=== PATIENT | male | born 1940 | race Caucasian/White ===

== ENCOUNTER 2018-08-28 13:46 | Inpatient (IN) ==
--- NOTE | 2018-08-28 14:26 | Diag Imaging Result Doc PS360 ---
CT HEAD W/O CONTRAST - 08/28/2018 INDICATION: stroke like sx COMPARISON: None FINDINGS: There is ill-defined cortical based hypodensity at the superior left frontal lobe focally. There is moderate cerebral atrophy. There is moderate patchy periventricular white matter lucency compatible with chronic microvascular disease. No intracranial mass or hemorrhage. The skull is intact. The sinuses are clear. 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 This report was discussed with Dr. Ames on 08/28/2018 at 2:20 PM and was readback. This exam was performed using automated exposure control, adjustment of mA or kV according to patient size, and/or use of iterative reconstruction technique Electronically signed by Nino Downey 08/28/2018 2:24 PM
--- NOTE | 2018-08-28 14:56 | EKG Report ---
Test Performed on : 08/28/2018 1:57:59 PM Test Reason : Stroke like symptoms Blood Pressure : / mmHG Vent. Rate : 060 BPM Atrial Rate : 060 BPM P-R Int : 162 ms QRS Dur : 128 ms QT Int : 412 ms P-R-T Axes : -01 -51 062 degrees QTc Int : 412 ms Normal sinus rhythm. Left axis deviation Left ventricular hypertrophy with QRS widening and repolarization abnormality Abnormal ECG When compared with ECG of 01-MAR-2017 07:37, No significant change was found Unconfirmed Result
--- NOTE | 2018-08-28 15:09 | Diag Imaging Result Doc PS360 ---
EXAM: CHEST-PORTABLE HISTORY: stroke like symptoms TECHNIQUE: Chest single view COMPARISON: None. FINDINGS: Poor inspiratory effort. The heart is enlarged. Mild central vascular prominence. No consolidation. Questionable tiny left pleural effusion. IMPRESSION: Cardiomegaly with borderline mild vascular distention Electronically signed by Bob Bush 08/28/2018 3:07 PM
[2018-08-28 15:13] LABS: INR 0.89; PROTIME 12.7 Seconds (11.0-16.0)
[2018-08-28 15:19] LABS: BASO# 0.01 X1000 (0.0-0.2); BASO% 0.1 % (0.0-0.8); EOS# 0.25 X1000 (0.0-0.7); EOS% 3.3 % (0.0-10.0); HEMATOCRIT 39.7 % (42.0-52.0); HEMOGLOBIN 12.9 g/dL (14.0-18.0); IMM GRAN# 0.02 X1000 (0.0-0.04); IMM GRAN% 0.3 % (0.0-0.5); LYMPH# 2.35 X1000 (1.2-3.4); MCH 28.2 PG (27-31); MCHC 32.5 g/dL (33-37); MCV 86.9 FL (81-99); MONO# 0.76 X1000 (0.11-0.59); MPV 10.9 FL (7.4-10.4); NEUT% 55.3 % (42.2-75.2); PLT 208 X1000 (130-400); RBC 4.57 XMIL (4.7-6.1); RDW 16.4 % (11.5-14.5); WBC 7.59 X1000 (4.8-10.8)
[2018-08-28 15:30] LABS: URINE SOURCE CATH
[2018-08-28 15:32] LABS: BILIRUBIN URINE NEGATIVE (NEGATIVE); BLOOD URINE NEGATIVE (NEGATIVE); COLOR YELLOW; GLUCOSE URINE 300 mg/dL (NEGATIVE); KETONE URINE NEGATIVE (NEGATIVE); LEUKOCYTES URINE NEGATIVE (NEGATIVE); NITRITE URINE NEGATIVE (NEGATIVE); PH URINE 7.5; PROTEIN URINE NEGATIVE (NEGATIVE); SP GRAVITY URINE 1.008; TURBIDITY URINE CLEAR (CLEAR); UR EPITHELIAL CELLS <10 /HPF (<10); URINE BACTERIA NEGATIVE /HPF; URINE RBC <10 /HPF (<10); URINE WBC <10 /HPF (<10); UROBILINOGEN URINE NORMAL (NORMAL)
[2018-08-28 15:39] LABS: AGAP 13; ALB/GLOB RATIO 1.3; ALBUMIN 4.3 g/dL (3.5-5.0); ALKALINE PHOSPHATASE 88 U/L (32-122); BUN 11 mg/dL (8-22); CALCIUM 9.5 mg/dL (8.8-10.2); CHLORIDE 102 mmol/L (98-107); COSMO 285; ESTIMATED GFR > 60; GLUCOSE 170 mg/dL (70-104); GOT 27 U/L (10-34); GPT 27 U/L (10-44); POTASSIUM 4.3 mmol/L (3.5-5.1); SODIUM 141 mmol/L (136-145); TCO2 26 mmol/L (25-35); TOTAL BILIRUBIN 0.46 mg/dL (0.20-1.00); TOTAL PROTEIN 7.5 g/dL (6.3-8.3)
--- NOTE | 2018-08-28 16:03 | PROVIDER DOCUMENTATION ---
This chart was entered by Lurdes Carmen Scribe, acting as scribe for Jonah Ames MD. HPI-Neurological Disorder - General Chief Complaint: Stroke-Like Symptoms Stated Complaint: POSS STROKE SYMPTOMS Time Seen by Provider: 08/28/18 14:05 Source: patient Allergies/Adverse Reactions: Patient Allergies Allergy/AdvReac Type Severity Reaction Status Date / Time No Known Allergies Allergy Verified 08/28/18 14:45 Home Medications: Home Medication List Medication Instructions Recorded Confirmed Last Taken Type Aspirin 81 mg PO DAILY 09/18/16 03/07/17 08/28/18 History Metformin HCl 500 mg PO BID 09/18/16 03/07/17 08/28/18 History Metoprolol Succinate [Toprol Xl] 50 mg PO DAILY 09/18/16 03/07/17 08/28/18 History Tramadol HCl/Acetaminophen 1 each PO TID 09/18/16 03/07/17 08/27/18 History [Ultracet Tablet] ATORVAstatin [Lipitor] 20 mg PO DAILY@1700 tablet 03/08/17 08/27/18 Rx Hydrocodone/Acetaminophen [[place] 1 - 2 each PO Q4-6H PRN PRN 14 03/08/17 Unknown Rx 10-325 Tablet] Days #40 tablet Biotin 1 dose PO DAILY 08/28/18 08/28/18 08/28/18 History Cholecalciferol (Vit D3) [Vitamin 1 dose PO DAILY 08/28/18 08/28/18 08/28/18 History D] Cyanocobalamin (Vitamin B-12) 1 dose PO DAILY 08/28/18 08/28/18 08/28/18 History [Vitamin B12] Donepezil HCl 1 tab PO DAILY 08/28/18 08/28/18 08/27/18 History Multivitamin [Multi-Day Vitamins] 08/28/18 08/28/18 History Omeprazole 1 tab PO DAILY 08/28/18 08/28/18 08/28/18 History Vitamin E 1 dose PO DAILY 08/28/18 08/28/18 08/28/18 History - History of Present Illness-Neuro Nature of Presenting Problem: Patient is a 78 year old male who presents with left temporal headache and difficulty completing sentences since 0930 this morning. Denies vision changes. Headache Location: reports: temporal (left) Severity: reports: mild Onset/Duration: reports: this morning (929) Timing: reports: still present Context: reports: impaired speech (difficulty completing sentences) Character of Deficits: reports: impaired speech (difficulty completing sentences) Associated Symptoms: reports: denies symptoms Similar Symptoms Previously?: No Recently seen or treated by another doctor?: No Review of Systems - Adult - REVIEW OF SYSTEMS - ADULT Constitutional: reports: no symptoms reported. denies: chills, fever, fatique Eyes: reports: no symptoms reported. denies: decreased vision, blurred vision, double vision Ears, Nose, Mouth & Throat: reports: no symptoms reported Cardiovascular: reports: no symptoms reported Respiratory: reports: no symptoms reported Gastrointestinal: reports: no symptoms reported Genitourinary: reports: no symptoms reported Musculoskeletal: reports: no symptoms reported Integumentary: reports: no symptoms reported Neurological: reports: see HPI, headache/migraines ([place]), other (difficulty completing sentences). denies: dizziness/vertigo, numbness, seizure, syncope Psychiatric: reports: no symptoms reported Endocrine: reports: no symptoms reported Hematologic/Lymphatic: reports: no symptoms reported Allergic/Immunologic: reports: no symptoms reported All Other Systems: Reviewed and Negative Past History - Adult - PAST MEDICAL HISTORY-ADULT Review of Records: reports: Old Records Reviewed, Nursing Assessment Review, Medications Reviewed, Social history reviewed & non-contributory. Major Childhood Illnesses: reports: denies history Cardiovascular: reports: denies history Respiratory: reports: sleep apnea Gastrointestinal: reports: other (hiatal hernia) Obstetrical/Gynecological: reports: denies history Genitourinary: reports: denies history Musculoskeletal: reports: denies history Neurological: reports: CVA, TIA Endocrine/Immune: reports: Diabetes Other Conditions: reports: denies history - PRIOR SURGERIES/PROCEDURES Surgical/Procedure History: reports: hernia repair, orthopedic (extremity), back/neck - IMMUNIZATION STATUS Childhood Immunizations: See Nurse Assessment Flu Vaccine: See Nurse Assessment - FAMILY HISTORY Family History: reviewed, not pertinent - SOCIAL HISTORY Smoking: cigarettes (former) Substance Use: denies Physical Exam- Neurological - Physical Exam-Neuro General Appearance: alert, no apparent distress. negative: lethargic, slow to respond Eye Exam: bilateral eye: normal inspection HENMT: normocephalic/atraumatic, moist mucous membranes, pharynx normal. negative: angioedema Head Injury: no evidence of injury. negative: contusions, ecchymosis, lacerations Neck: non-tender, normal inspection. negative: C-spine tenderness Respiratory: chest non-tender, lungs clear, normal breath sounds. negative: crackles, stridor, wheezing Cardiovascular: normal peripheral pulses, regular rate, rhythm. negative: tachycardia, systolic murmur Abdominal Exam: normal bowel sounds, non tender, soft. negative: guarding, rebound Extremity: non-tender, normal inspection. negative: deformity, erythema, swelling playground supervisor Exam: normal hearing, PERRL, other (difficulty completing sentences). negative: facial droop Neurologic: playground supervisor II-XII nml as tested (intact), no motor/sensory deficits, other (difficulty completing sentences). negative: facial droop Integumentary: normal color, normal turgor, warm/dry. negative: cyanosis, ecchymosis, jaundice Psych/Mental Status: normal mood/affect, oriented x 3. negative: anxious - Glascow Coma Scale Best Eye Response: (4) open spontaneously Best Verbal Response: (5) oriented Best Motor Response: (6) obeys commands Total Glascow Score: 15 Progress - PLAN OF CARE/RESULTS Progress/Plan/Lab Results: Vital Signs - 8 hr 08/28/18 13:49 08/28/18 14:03 08/28/18 14:14 Temperature 97.8 F Pulse Rate 60 59 L 59 L Respiratory Rate 20 22 21 Blood Pressure 158/78 155/68 134/88 O2 Sat by Pulse Oximetry 96 95 08/28/18 14:30 08/28/18 14:32 Temperature Pulse Rate 60 63 Respiratory Rate 22 15 Blood Pressure 152/78 O2 Sat by Pulse Oximetry 95 96 Laboratory Results - last 24 hr 08/28/18 08/28/18 08/28/18 14:18 14:18 14:18 WBC 7.59 RBC 4.57 L Hgb 12.9 L Hct 39.7 L MCV 86.9 MCH 28.2 MCHC 32.5 L RDW Std Deviation 16.4 H Plt Count 208 MPV 10.9 H Immature Gran % (Auto) 0.3 Neut % (Auto) 55.3 Lymph % (Auto) 31.0 [place] % (Auto) 10.0 H Eos % (Auto) 3.3 Baso % (Auto) 0.1 Immature Gran # (Auto) 0.02 Neut # (Auto) 4.20 Lymph # (Auto) 2.35 [place] # (Auto) 0.76 H Eos # (Auto) 0.25 Baso # (Auto) 0.01 PT 12.7 INR 0.89 PTT (Actin FS) 27.0 Sodium 141 Potassium 4.3 Chloride 102 Carbon Dioxide 26 Anion Gap 13 BUN 11 Creatinine 1.0 Estimated GFR/1.73 m2 > 60 BUN/Creatinine Ratio 11 Glucose 170 H POC Glucose Calculated Osmolality 285 Calcium 9.5 Total Bilirubin 0.46 AST 27 ALT 27 Alkaline Phosphatase 88 Troponin T Total Protein 7.5 Albumin 4.3 Globulin 3.2 Albumin/Globulin Ratio 1.3 Urine Source Urine Color Urine Turbidity Urine pH Ur Specific [place] Urine Protein Ur Glucose (Stick) Ur Ketones (Stick) Urine Blood Urine Nitrite Urine Bilirubin Urobilinogen Dipstick Urine Leukocytes Urine WBC (Auto) Urine RBC (Auto) U Epithel Cells (Auto) Urine Bacteria (Auto) 08/28/18 08/28/18 08/28/18 14:18 15:05 15:17 WBC RBC Hgb Hct MCV MCH MCHC RDW Std Deviation Plt Count MPV Immature Gran % (Auto) Neut % (Auto) Lymph % (Auto) [place] % (Auto) Eos % (Auto) Baso % (Auto) Immature Gran # (Auto) Neut # (Auto) Lymph # (Auto) [place] # (Auto) Eos # (Auto) Baso # (Auto) PT INR PTT (Actin FS) Sodium Potassium Chloride Carbon Dioxide Anion Gap BUN Creatinine Estimated GFR/1.73 m2 BUN/Creatinine Ratio Glucose POC Glucose 163 H Calculated Osmolality Calcium Total Bilirubin AST ALT Alkaline Phosphatase Troponin T < 0.010 Total Protein Albumin Globulin Albumin/Globulin Ratio Urine Source CATH Urine Color YELLOW Urine Turbidity CLEAR Urine pH 7.5 Ur Specific [place] 1.008 Urine Protein NEGATIVE Ur Glucose (Stick) 300 A Ur Ketones (Stick) NEGATIVE Urine Blood NEGATIVE Urine Nitrite NEGATIVE Urine Bilirubin NEGATIVE Urobilinogen Dipstick NORMAL Urine Leukocytes NEGATIVE Urine WBC (Auto) <10 Urine RBC (Auto) <10 U Epithel Cells (Auto) <10 Urine Bacteria (Auto) NEGATIVE Orders Category Date Time Status Cardiac Monitoring DIRECTED Care 08/28/18 14:50 Active Finger Stick Blood Sugar (ED) DIRECTED Care 08/28/18 14:50 Active Saline Loc NOW Care 08/28/18 14:50 Active CHEST-PORTABLE [RAD] Stat Exams 08/28/18 14:[address] HEAD W/O CONTRAST [CT] Stat Exams 08/28/18 14:02 Completed CBC WITH ELECTRONIC DIFF [HEME] Stat Lab 08/28/18 14:18 Completed COMPREHENSIVE METABOLIC PANEL [CHEM] Stat Lab 08/28/18 14:18 Completed PROTIME WITH INR [COAG] Stat Lab 08/28/18 14:18 Completed PTT [COAG] Stat Lab 08/28/18 14:18 Completed TROPONIN T Stat Lab 08/28/18 14:18 Completed URINALYSIS W/POSS RFLX CULT [URINALYSIS] Stat Lab 08/28/18 15:17 Completed EKG [EKG] Stat Ther 08/28/18 14:50 Draft Result Diagrams: 08/28/18 14:18 08/28/18 14:18 - EKG 1 Time of EKG reading by physician:: 13:57 EKG Read and Signed by:: Jonah Ames EKG Interpretation (*Must complete 3 of following elements*): Abnormal Rate: 60 Rhythm: normal sinus rhythm [place]: left QRS: LVH (with QRS widening and repolarization abnormality.) WA Interval: normal Comments: abnormal ECG - CT/MRI 1 CT Study: Head Impression: See EMR Report (CT HEAD W/O CONTRAST - 08/28/2018 INDICATION: stroke like sx COMPARISON: None FINDINGS: There is ill-defined cortical based hypodensity at the superior left frontal lobe focally. There is moderate cerebral atrophy. There is moderate patchy periventricular white matter lucency compatible with chronic microvascular disease. No intracranial mass or hemorrhage. The skull is intact. The sinuses are clear. 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 This report was discussed with Dr. Ames on 08/28/2018 at 2:20 PM and was readback. This exam was performed using automated exposure control, adjustment of mA or kV according to patient size, and/or use of iterative reconstruction technique Electronically signed by Nino Downey 08/28/2018 2:24 PM 08/28/18 0486 Inte rpretin Physician: Nino Downey MD Dictated Date/Time: 08/28/18 0613 cc: Jonah Ames MD; Baljinder Valle MD) - CONSULTS/PCP/HOSPITALIST Notification #1 *Consult/PCP/Hospitalist*: Leonard Time Discussed: 16:00 Consult Disposition: Admit Departure - Departure Date of Disposition Decision: 08/28/18 Time of Disposition Decision: 16:03 DIAGNOSIS: CVA (cerebral vascular accident) Disposition: ADMITTED INPATIENT 09 Certified Medical Emergency: Emergent Condition: Good Referrals and Follow-Ups: Baljinder Valle MD [Primary Care Provider] - - Critical Care Note This patient required my direct & personal management of CC.: No Attestation - Physician/ JUANA Attestation Patient care was provided by Advanced Practice Provider:: No The physician spent face to face time with patient:: Yes Advanced Practice Provider documentation review:: Supervising physician onsite and consulted in the evaluation and care of this patient. The physician did have a face to face encounter with the patient. - NIH Stroke Scale Level of Consciousness: 0-Alert LOC Questions (ask month and age): 0-Answers Both Correctly LOC Commands (ask to open & close eyes;make a fist, let go): 0-Obeys Both Correctly Best Gaze (horizontal eye movement): 0-Normal Visual (use finger movement, counting or visual threat): 0-No Visual Loss Facial Palsy (show teeth or raise eyebrows & close eyes tght: 0-Symmetrical Movement Motor Function-left arm: 0-Normal Motor Function-right arm: 0-Normal Motor Function-left le-Untestable Motor Function-right le-Untestable Limb Ataxia(iiffjn-hqcq-hoyofv, or heel to arellano): 0-No Ataxia Sensory(pin prick to face,arms,trunk,legs-compare side/side): 0-No Ataxia Best Language(name item/read sentence.Ex-Down to Earth): 1-Mild to Moderate Aphasia Dysarthria(Pt read words or say words Ex.Mama,Tip-Top,Thanks: 0-Normal Articulation Extinction and Inattention: 0-Normal Modified Craig Score Criteria: 3-moderate disability Stroke tPA Guidelines - Inclusion Criteria for IV tPA 18 years old or older: Yes Ischemic stroke with measurable deficit: Yes Onset <3 hours ago *OR* 3-4.5 hours ago: No This chart was documented by the indicated scribe, (Lurdes Carmen Scribe) and accurately reflects the services I performed and decisions made by me, Jonah Ames MD, as attested by the provider's signature.
[2018-08-28] MEDS ORDERED: NS 1,000 ML IV ONE (16:05)
[2018-08-28] MEDS ORDERED: ZOFRAN IV PRN (16:05)
[2018-08-28] MEDS: HUMULIN R SUBQ SCH (21:44)
[2018-08-28] MEDS: ULTRACET 37.5MG/325MG PO SCH (21:52)
[2018-08-28] MEDS: LIPITOR PO SCH (21:53)
[2018-08-28] MEDS: ARICEPT PO SCH (21:54)
--- NOTE | 2018-08-28 22:54 | HISTORY AND PHYSICAL ---
CHIEF COMPLAINT: Headaches, speech impediments. HISTORY OF PRESENT ILLNESS: This is a 78-year-old white male who came in with left-sided headaches, stroke-like symptoms since this morning. The patient denies any vision changes. The patient was seen in the emergency room. He has been diagnosed with a recent infarct in the left frontal. He had an MRI done before. The patient denies any swallowing problems, vision problems, any deficits or weakness. He also complains of neck pain and headache. He was admitted to the hospital for what appears to be Wernicke's aphasia and some further workup rule out vasculitis. Dr. Workman has been consulted. HISTORY OF PRESENT ILLNESS: 1. Hepatic steatosis. 2. Benign chondroma titer per humerus. 3. Diverticulosis. 4. Vascular dementia. 5. Diabetes. 6. Hiatal hernia. 7. Genital herpes. 8. Recently treated for shingles in the right C6-C7. 9. Sleep apnea. PAST SURGICAL HISTORY: 1. Palatopharyngoplasty. 2. Umbilical hernia repair. 3. Vasectomy. 4. Lumbar spine surgery. 5. Circumcision. 6. Blepharoplasty. 7. Back surgery. 8. Right shoulder surgery. 9. Left rotator cuff repair. 10.Status post right total knee replacement. 11.Last stress test was done [address] Porter. Ejection fraction was 65%. Korin infarct ischemia and subsequently negative left heart catheter in 09/2016. MEDICATIONS: Aricept 10 mg daily, Aspirin 81 mg daily, Lipitor 20 mg daily, Metformin 500 p.o. b.i.d., Prozac 40 mg daily, Toprol XL 50 daily, tramadol 50 once daily. ALLERGIES: Lopressor and Tylenol. SOCIAL HISTORY: No smoking. No alcohol. . One child leaves in [facility], retired. FAMILY HISTORY: Father of pneumonia at 72. Mom of heart failure at 86. REVIEW OF SYSTEMS: Unable to obtain. Complains of headache, neck pain, speech problems. Not able to comprehend. No vision problems. CARDIOPULMONARY: No chest pain, shortness of breath, PND, or orthopnea. GASTROINTESTINAL: No nausea or vomiting or abdominal pain. GENITOURINARY: No urgency, frequency, or dysuria. No swelling of legs. NEUROLOGIC: Headaches, Continues to complain of headaches. Not able to comprehend. PHYSICAL EXAMINATION: VITAL SIGNS: Temperature is 98, pulse 58, blood pressure 140/67, 5 feet 10 inches, 244 pounds. HEENT: Atraumatic, normocephalic. Pupils equal and reactive to light. TMs are normal. Nose and throat within normal limits. NECK: Supple. No lymphadenopathy. No goiter. CHEST: Has bilateral air entry. HEART: Sounds are regular. ABDOMEN: Belly is soft, obese, nontender. RECTAL: Deferred. EXTREMITIES: No peripheral edema, cyanosis. NEUROLOGIC: No obvious neurologic deficits. INVESTIGATIONS: CBC: White cell count 7.3, hematocrit 39, platelets 209,000. PT 12, INR 0.8. PTT 27. SMAC-7 is normal. Glucose 170. Liver function tests were normal. Urinalysis is clear. Chest x-ray: Cardiomegaly. CT of the head: Recent infarction in the left frontal lobe. ASSESSMENT AND PLAN: 1. A 78-year-old white gentleman admitted to the hospital with headache and recently had a stroke. Rule out vasculitis. The plan is for an MRI of the brain, MRA. Check the sedimentation rate and C-reactive protein. Appears to be Wernicke's aphasia, 2. Vascular dementia on Aricept. Continue on aspirin and Lipitor. 3. Type 2 diabetes on Metformin. Hold. Continue sliding scale with insulin coverage. Reconcile home medications. 4. Deep vein thrombosis and gastrointestinal prophylaxis with Lovenox and Pepcid respectively. Check the labs in the morning. 5. Hepatic steatosis, stable. Hepatitis profile is negative. 6. Chronic back pain followed by Dr. Subramanian. We will follow up. cc: Ricardo Valle MD [facility]
[2018-08-29] MEDS: HUMULIN R SUBQ SCH ×4 (07:08→21:23)
[2018-08-29 07:31] LABS: HEMOGLOBIN A1C 7.5 % (4.8-6.0)
[2018-08-29 07:36] LABS: CHOLESTEROL 106 mg/dL (0-200); HDL 30 mg/dL (35-55); LDL 52 mg/dL; TRIGLYCERIDES 121 mg/dL (39-160); VLDL 24 mg/dL
[2018-08-29] MEDS ORDERED: ASPIRIN PO SCH (09:00)
[2018-08-29] MEDS: VITAMIN B-12 PO SCH (11:03)
[2018-08-29] MEDS: VITAMIN D PO SCH (11:04)
[2018-08-29] MEDS: CENTRUM SILVER PO SCH (11:04)
[2018-08-29] MEDS: ASPIRIN PO SCH (11:05)
[2018-08-29] MEDS: VITAMIN E PO SCH (11:05)
[2018-08-29] MEDS: PRILOSEC PO SCH (11:05)
[2018-08-29] MEDS: BIOTIN PO SCH (11:07)
[2018-08-29] MEDS: ULTRACET 37.5MG/325MG PO SCH ×3 (11:10→17:19)
[2018-08-29] MEDS: TOPROL XL PO SCH (11:11)
--- NOTE | 2018-08-29 11:37 | Diag Imaging Result Doc PS360 ---
EXAM: MRI BRAIN W/WO CONTRAST INDICATION: CVA COMPARISON: CT dated 08/28/2018 and prior MRI dated 01/12/2018 FINDINGS: There is a known acute cortical infarct involving the superior aspect of the left frontal lobe that was also seen on the recent CT. There is associated mild focal sulcal effacement indicating edema. No other acute infarct is identified. There is stable focal encephalomalacia involving the right cerebellar hemisphere and there are a few chronic lacunar infarcts in the periventricular and subcortical white matter. There is moderate white matter microangiopathy that is stable. There is no discrete intracranial mass, significant mass effect, or intracranial hemorrhage. There is no evidence of abnormal intracranial enhancement. There is mild ethmoid and left frontal sinus mucosal disease. Surrounding soft tissues and bony structures are essentially unremarkable, otherwise. IMPRESSION: 1.Known acute infarct involving the left frontal lobe that was also seen on the recent CT. 2.Right cerebellar encephalomalacia and several chronic lacunar infarcts in the periventricular and subcortical white matter that are stable. 3.Stable moderate white matter microangiopathy. Electronically signed by Deyvi Styles 08/29/2018 11:35 AM
--- NOTE | 2018-08-29 11:47 | Diag Imaging Result Doc PS360 ---
EXAM: MRA BRAIN W/CONTRAST INDICATION: CVA TECHNIQUE: Axial 3-D [id number] images and 3-D MIPS were obtained. COMPARISON: None. FINDINGS: The distal ICAs, ACAs, and commission sales associate all appear to be widely patent with no flow-limiting stenosis, vascular malformation, or aneurysm. No definite flow-limiting stenosis, vascular malformation, or aneurysm is identified involving the right MCA and a majority of the left MCA. There may be slightly diminished flow in a branch of the left MCA that supplies the region of the known acute left frontal lobe infarct. The distal vertebral arteries and basilar artery are widely patent. IMPRESSION: Suggestion of subtle decreased flow and a segment of the left MCA supplying the region of the known left frontal lobe infarct. No flow-limiting stenosis identified, otherwise. Electronically signed by Deyvi Styles 08/29/2018 11:45 AM
[2018-08-29] MEDS: LIPITOR PO SCH (17:20)
--- NOTE | 2018-08-29 20:41 | CONSULTATION ---
DATE OF CONSULTATION: 08/29/2018 Mr. Hamilton is 78 years old and he has had a stroke. History from attentive family is that he seemed suddenly unable to communicate with speech just after noon yesterday, approximately 24 hours before my evaluation. Prior to that, he had seemed to be not speaking as much as usual, but not having definite difficulty. He complained of some headache and neck soreness. He had trouble finding words afternoon. He may have had a little bit of trouble understanding what was said to him. did not notice change in gait ability, weakness in the limbs, facial asymmetry. There was never unconsciousness or altered awareness. He was brought to the hospital, evaluated and admitted. He has been stable overnight and believes speech may be a little bit better today. Workup includes brain MRI showing restricted diffusion in the left posterior frontal lobe consistent with acute infarction and some edema. There is old right cerebellar encephalomalacia and old small bilateral subcortical cerebral infarctions. Brain MRA is unremarkable. He has been afebrile. Heart rate has ranged 50s to 60s. Systolic blood pressure was initially 150s, recently mostly 130s. Past history is remarkable for dyslipidemia, diabetes mellitus, possibly hypertension or cardiac arrhythmia. He has been taking metoprolol and is not certain whether that was for blood pressure or for rhythm. He had seemed more forgetful a year or so ago and was started on donepezil then. He has tolerated that and seemed improved after donepezil was added. Daughter at the bedside now reports the trouble a year ago might also have been at least partially a language problem. Lab shows blood sugars 110 to 170 range. Nothing else remarkable on chemistry profile. There is mild anemia. On exam, Mr. Hamilton is awake, alert, attentive, appropriate, cheerful. Speech is not significantly dysarthric. He named objects, but had trouble naming parts of objects. He had trouble following commands requiring right/left distinction and digit distinction. He did well with brief repeating. He followed simple written command well, but had trouble following complex written command. There was some perseveration. I did not test his handwriting. He has full visual biswas tested grossly by confrontational finger counting. Extraocular movements are full. Facial motility appears symmetric now. Gag is intact. Tongue is midline. He can hear. Shoulder shrug is equal. Strength is normal in the arms and legs. Limb tone is symmetric. He did well on finger-nose testing bilaterally. He reports diminished pinprick appreciation in a stocking pattern bilaterally, equal on the left and right. I did not test his gait. Plantar response is silent bilaterally. IMPRESSION: 1. Predominantly expressive dysphasia with definite receptive component. Sudden onset and stable course is consistent with acute dominant left hemisphere infarction as is demonstrated on the MRI. He has risk factors including possible previous stroke, age, dyslipidemia, diabetes mellitus, possibly hypertension. We need to continue to maintain adequate blood pressure. We can do that with hydration. If he had been taking metoprolol, I think that has been stopped. 2. Possible baseline cognitive impairment. He has been stable with donepezil, tolerated that drug and may have shown some clinical improvement. In that case, I would continue donepezil. 3. Clinical evidence of peripheral neuropathy, presumed diabetic neuropathy. I do not think this problem needs urgent attention. I am optimistic he will continue stable course with improvement. Speech therapy might be helpful. We need to maintain adequate blood pressure as mentioned above. I would treat blood sugar and lipids aggressively. If carotid imaging has not been obtained, that can be done electively. Thanks for asking Neurology to see Mr. Hamilton. cc: MD Ricardo Bond III, MD MTDD
[2018-08-29] MEDS: ARICEPT PO SCH (21:05)
--- NOTE | 2018-08-29 22:02 | PROGRESS NOTE ---
DATE: 08/29/2018 SUBJECTIVE: The patient still has some trouble of getting the words. It looks like a Wernicke aphasia and waiting for MRI. No other focal deficits. Complains of headache. EXAMINATION: Temperature is 98 degrees, pulse 56, blood pressure stable.HEENT: Within normal limits. Neck: Supple. Chest: Clear. Heart: Sounds are regular. Belly: Soft, nontender. No obvious deficits. ASSESSMENT AND PLAN: 1. Cerebrovascular accident on the left side with lacunar strokes and vascular dementia. 2. Ongoing diabetes and headaches. Followup sedimentation rate and CRP was normal. Is doubt is vasculitis and A1c 7.5 and his LDL is 52 optimal range and plan of care. Dr. Workman consult. Follow up on MRI, MRA, previous carotid Doppler was negative and continue present treatment and will follow up. LEVEL OF DOCUMENTATION: 25 minutes. cc: Ricardo Valle MD
--- NOTE | 2018-08-29 23:19 | ECHO REPORT ---
ORDER DATE: 08/28/2018 MEASUREMENTS: Septal thickness 1.6. Left ventricular internal diameter in diastole 5.0, left ventricular internal diameter in systole 3.6. Aortic root 4.8. Left atrium 3.9. SUMMARY: 1. Limited echocardiographic study performed. Acoustic window quality is fair. 2. The aortic valve is trileaflet and opens normally on 2-dimensional images. Doppler of the aortic valve not performed. Mild mitral annular calcification is demonstrated. Mitral valve opening appears to be adequate. Doppler of mitral valve not performed. Tricuspid valve is without evidence of structural abnormality. Pulmonic valve is not well demonstrated. The aortic root is grossly normal in size. 3. Normal left ventricular chamber size demonstrated. Mild to moderate left ventricular hypertrophy is demonstrated. Estimated left ventricular ejection fraction is approximately 65%. No regional wall motion abnormalities are evident. Left atrium is borderline enlarged. Right atrium and right ventricle are grossly normal in size. 4. No pericardial effusion. cc: MD Ricardo Golden MD
[2018-08-30] MEDS: HUMULIN R SUBQ SCH ×4 (06:51→21:49)
[2018-08-30] MEDS: VITAMIN B-12 PO SCH (08:33)
[2018-08-30] MEDS: VITAMIN D PO SCH (08:33)
[2018-08-30] MEDS: ULTRACET 37.5MG/325MG PO SCH ×3 (08:33→18:19)
[2018-08-30] MEDS: VITAMIN E PO SCH (08:35)
[2018-08-30] MEDS: BIOTIN PO SCH (08:35)
[2018-08-30] MEDS: TOPROL XL PO SCH (08:35)
[2018-08-30] MEDS: CENTRUM SILVER PO SCH (08:35)
[2018-08-30] MEDS: ASPIRIN PO SCH (08:35)
[2018-08-30] MEDS: PRILOSEC PO SCH (08:35)
[2018-08-30] MEDS: LIPITOR PO SCH (18:20)
[2018-08-30] MEDS: ARICEPT PO SCH (20:09)
--- NOTE | 2018-08-30 21:58 | PROGRESS NOTE ---
DATE: 08/30/2018 SUBJECTIVE: Patient is slightly better, still confabulation, some memory problems. is at bedside. OBJECTIVE: Vital Signs: Temperature is 97.9 degrees, pulse 57, blood pressure is stable. HEENT: No facial droop noted. Neck: Supple. Chest: Bilateral air entry. Heart: Sounds are regular. Abdomen: Belly is soft, nontender. Neurologic: No obvious neurological deficits. INVESTIGATIONS: Sed rate is 14. CRP is normal. LDL is 52. A1c is 7.5. Telemetry is normal sinus. Carotid Dopplers are negative. MRI findings were reviewed, which showed acute infarct, mostly left frontal lobe, right cerebellar encephalomalacia, chronic lacunar infarcts, moderate white matter angiopathy. MRI of the brain: Decreased flow on the left MCA. ASSESSMENT AND PLAN: Left-sided stroke with Wernicke aphasia, most likely lacunar disease. All his blood pressure, A1c, LDL are target. Carotid Dopplers are all negative. Continue on aspirin, Lipitor, and will resume the metformin after 48 hours. If he continues to improve, will discharge as an outpatient with occupational therapy. LEVEL OF DOCUMENTATION: 25 minutes. cc: Ricardo Valle MD
[2018-08-30] MEDS: GLUCOPHAGE PO SCH (23:42)
[2018-08-31] MEDS: HUMULIN R SUBQ SCH (06:00)
[2018-08-31 08:06] VITALS: BP 132/67
[2018-08-31] MEDS: GLUCOPHAGE PO SCH (08:56)
[2018-08-31] MEDS: VITAMIN E PO SCH (08:56)
[2018-08-31] MEDS: ULTRACET 37.5MG/325MG PO SCH (08:56)
[2018-08-31] MEDS: BIOTIN PO SCH (08:57)
[2018-08-31] MEDS: VITAMIN D PO SCH (08:57)
[2018-08-31] MEDS: ASPIRIN PO SCH (08:57)
[2018-08-31] MEDS: PRILOSEC PO SCH (08:57)
[2018-08-31] MEDS: VITAMIN B-12 PO SCH (08:57)
[2018-08-31] MEDS: CENTRUM SILVER PO SCH (08:57)
[2018-08-31] MEDS: TOPROL XL PO SCH (08:57)
--- NOTE | 2018-09-01 09:44 | Carotid Study ---
DATE: 08/28/2018 PROCEDURE: Bilateral duplex and color flow imaging of the carotid arteries performed using the [employer] Vivid E9 Ultrasound System with a 9L-D transducer. REFERRING PHYSICIAN: Dr. Ames. INTERPRETING PHYSICIAN: Missy Grayson MD. TECH: Arleth German Carley. INDICATIONS: A 78-year-old male. CVA - stroke. OBSERVED DATA RIGHT LEFT Brachial Blood Pressure Carotid Pulse Bruits: Carotid/Sub DIAGRAM OF ULTRASOUND IMAGING R L RIGHT INT EXT INT EXT LEFT Rei (cm/s) Rei (cm/s) Subclavian 80/0 Subclavian 75/0 CCA Proximal 56/6 CCA Proximal 59/9 CCA Distal 51/8 CCA Distal 61/13 Bulb 39/7 Bulb 44/7 ICA Proximal 47/10 ICA Proximal 41/11 ICA Mid 39/11 ICA Mid 54/18 ICA Distal 64/17 ICA Distal 50/16 ECA 71/8 ECA 78/10 Vertebral 39/12 Forward flow Vertebral 37/10 Forward flow ICA/CCA Ratio 1.14 ICA/CCA Ratio 0.88 % Stenosis 0-39% % Stenosis 0-39% PHYSICIAN INTERPRETATION: Mild atherosclerotic disease of the distal common and internal carotid arteries bilaterally without evidence of a hemodynamically significant lesion in either carotid system. cc: MD Ricardo Cedillo MD
--- NOTE | 2018-09-02 07:50 | DISCHARGE SUMMARY ---
ADMISSION DATE: 08/28/2018 DISCHARGE DATE: 08/31/2018 DISCHARGING DIAGNOSES: 1. Left-sided headache and Wernicke's aphasia due to left-sided stroke, mostly frontal area due to lacunar strokes. SECONDARY DIAGNOSES: 1. Metabolic syndrome. 2. Hepatic steatosis. 3. 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 4. Diverticulosis. 5. Multi-infarct vascular dementia. 6. Type 2 diabetes. 7. Hiatal hernia. 8. Sleep apnea, status post uvulopalatopharyngoplasty. CONSULTS: Dr. Workman. BRIEF HISTORY: Please see the H and P that was done on 08/28/2018. In brief, he is a 78-year-old white male with above problems who came in with headache on the left side, speech impediments and memory loss, confusion. HOSPITAL COURSE: Initially CT showed recent infarct in the left frontal lobe and he had extensive workup done. It concluded due to small vessel disease and lacunar infarcts. All the risk factors were modified and they were up to the target. He did not have any neurological deficits. For the part of the headaches, the patient has normal sedimentation rate, normal CRP, which ruled out for temporal arteritis. LABORATORY DATA: CBC: White cell count 7.5, hematocrit 39.7, platelet count 208,000. Sedimentation rate is 14. PT 12, INR 0.8. Sodium 140, potassium 4.3, chloride 102, BUN 11, creatinine 1.0. A1c 7.5. Liver function tests were normal. CRP 0.80. Triglycerides 121, cholesterol 106, LDL 52, HDL is 30. Urinalysis is clear. MRI of the brain: Acute infarct in the left frontal lobe, right cerebral encephalomalacia. Brain MRI: Subtle decrease of flow and segment of left MCA. Chest x-ray: Borderline cardiomegaly. CT head: Infarction of the left frontal lobe. Carotid Dopplers: No hemodynamic stenosis in either internal carotid system. The patient is sinus on telemetry. DISCHARGE INSTRUCTIONS: 1. Metoprolol 50 mg daily. 2. Aspirin 81 mg daily. 3. Metformin 500 p.o. b.i.d. 4. Lipitor 20 mg daily. 5. Vitamin D 5000 units daily. 6. Vitamin B12 25 mcg daily. 7. Multivitamin 1 tablet daily. 8. Prilosec 40 daily. 9. Aricept 10 mg daily. 10. Plavix 75 daily. 11. Ultracet 1 tab t.i.d. for pain. Follow up in my office in 2 weeks. cc: MD Vin Lr III, MD MTDD
== END 2018-08-31 11:56 | disposition home or self-care (01) | DRG 66 ==
LOC: ED 13:46 → 3N 16:15
PROVIDERS: ADMIT Internal Medicine; ATTEND Internal Medicine
CPT/HCPCS: 70450; 70460; 70545; 70553; 71010; 71045; 80053; 80061; 81001; 82948; 83036; 84484; 85025; 85610; 85651; 85730; 86141; 93005; 93308; 93880; 99285; A9270; A9579; J7030; XXXXX

== ENCOUNTER 2019-06-02 10:03 | Inpatient (IN) ==
[2019-06-02] MEDS ORDERED: NS 1,000 ML IV ONE ×3 (10:09→17:32)
--- NOTE | 2019-06-02 10:29 | Diag Imaging Result Doc PS360 ---
CT HEAD W/O CONTRAST - 06/02/2019 INDICATION: stroke like symptoms COMPARISON: 08/28/2018 FINDINGS: There are chronic infarctions in the left frontal and parietal lobes, new or worsening from prior. Stable diffuse cerebral atrophy. Stable advanced chronic microvascular ischemia. Stable old lacunar in the left thalamus. Stable old stroke in the right cerebellar hemisphere. The skull is intact. The sinuses, mastoids, and middle ears are clear. IMPRESSION: Increasing chronic stroke burden. No acute abnormality. This exam was performed using automated exposure control, adjustment of mA or kV according to patient size, and/or use of iterative reconstruction technique Electronically signed by Nino Downey 06/02/2019 10:27 AM
--- NOTE | 2019-06-02 10:32 | Diag Imaging Result Doc PS360 ---
CHEST-PORTABLE - 06/02/2019 INDICATION: stroke like symptoms COMPARISON: 08/28/2018 FINDINGS: The lungs are normally expanded and clear. Heart size and mediastinal contours are normal. No pneumothorax or pleural effusion. Stable calcified granuloma in the lateral right lung base. IMPRESSION: Negative exam. Electronically signed by Nino Downey 06/02/2019 10:29 AM
[2019-06-02 11:24] LABS: BASO# 0.02 X1000 (0.0-0.2); BASO% 0.3 % (0.0-0.8); EOS# 0.16 X1000 (0.0-0.7); EOS% 2.4 % (0.0-10.0); HEMATOCRIT 43.4 % (42.0-52.0); HEMOGLOBIN 13.7 g/dL (14.0-18.0); IMM GRAN# 0.02 X1000 (0.0-0.04); IMM GRAN% 0.3 % (0.0-0.5); LYMPH# 1.36 X1000 (1.2-3.4); LYMPH% 20.7 % (20.5-51.1); MCHC 31.6 g/dL (33-37); MCV 88.6 FL (81-99); MONO# 0.65 X1000 (0.11-0.59); MONO% 9.9 % (1.7-9.3); MPV 10.6 FL (7.4-10.4); NEUT# 4.37 X1000 (1.4-6.5); NEUT% 66.4 % (42.2-75.2); PLT 225 X1000 (130-400); WBC 6.58 X1000 (4.8-10.8)
[2019-06-02 11:29] LABS: INR 0.98; PROTIME 13.1 Seconds (11.0-16.0)
[2019-06-02 11:30] LABS: PTT 26.2 Seconds (22.3-41.8)
[2019-06-02 11:40] LABS: AGAP 11; ALB/GLOB RATIO 1.4; ALBUMIN 4.3 g/dL (3.5-5.0); ALKALINE PHOSPHATASE 95 U/L (32-122); BUN 11 mg/dL (8-22); CALCIUM 9.5 mg/dL (8.8-10.2); CHLORIDE 101 mmol/L (98-107); COSMO 285; ESTIMATED GFR > 60; GLUCOSE 241 mg/dL (70-104); GOT 41 U/L (10-34); GPT 41 U/L (10-44); POTASSIUM 4.9 mmol/L (3.5-5.1); SODIUM 139 mmol/L (136-145); TCO2 27 mmol/L (25-35); TOTAL BILIRUBIN 0.66 mg/dL (0.20-1.00); TOTAL PROTEIN 7.3 g/dL (6.3-8.3)
[2019-06-02 11:48] LABS: URINE SOURCE CLEAN CATCH
[2019-06-02 11:51] LABS: BILIRUBIN URINE NEGATIVE (NEGATIVE); BLOOD URINE NEGATIVE (NEGATIVE); COLOR YELLOW; GLUCOSE URINE >1000 mg/dL (NEGATIVE); KETONE URINE NEGATIVE (NEGATIVE); LEUKOCYTES URINE NEGATIVE (NEGATIVE); NITRITE URINE NEGATIVE (NEGATIVE); PH URINE 6.5; PROTEIN URINE TRACE mg/dL (NEGATIVE); TURBIDITY URINE CLEAR (CLEAR); UROBILINOGEN URINE NORMAL (NORMAL)
[2019-06-02 11:52] LABS: UR EPITHELIAL CELLS <10 /HPF (<10); URINE BACTERIA NEGATIVE /HPF; URINE RBC <10 /HPF (<10); URINE WBC <10 /HPF (<10)
--- NOTE | 2019-06-02 12:00 | EKG Report ---
Test Performed on : 06/02/2019 10:49:53 AM Test Reason : Stroke like symptoms Blood Pressure : / mmHG Vent. Rate : 062 BPM Atrial Rate : 062 BPM P-R Int : 168 ms QRS Dur : 124 ms QT Int : 408 ms P-R-T Axes : 001 -55 052 degrees QTc Int : 414 ms Normal sinus rhythm. Left anterior fascicular block Left ventricular hypertrophy with QRS widening Abnormal ECG When compared with ECG of 28-AUG-2018 13:57, No significant change was found Unconfirmed Result
[2019-06-02 12:12] LABS: UR AMPHETAMINES QUAL NONE DETECTED (NONE DETECT); UR BARBITUATES QUAL NONE DETECTED (NONE DETECT); UR BENZODIAZEPIN QUAL NONE DETECTED (NONE DETECT); UR CANNABINOIDS QUAL NONE DETECTED (NONE DETECT); UR COCAINE QUAL NONE DETECTED (NONE DETECT); UR METHADONE QUAL NONE DETECTED (NONE DETECT); UR OPIATES QUAL NONE DETECTED (NONE DETECT); UR OXYCODONE QUAL NONE DETECTED (NONE DETECT); UR PCP QUAL NONE DETECTED (NONE DETECT)
[2019-06-02] MEDS ORDERED: ZOFRAN PO PRN (12:20)
[2019-06-02] MEDS ORDERED: TYLENOL PO PRN (12:20)
--- NOTE | 2019-06-02 12:21 | PROVIDER DOCUMENTATION ---
This chart was entered by Jacquie Jordan Scribe, acting as scribe for Gordo Deluna MD. HPI-Neurological Disorder - General Chief Complaint: STROKE ALERT Stated Complaint: "POSS STROKE" Time Seen by Provider: 06/02/19 10:04 Source: patient Allergies/Adverse Reactions: Patient Allergies Allergy/AdvReac Type Severity Reaction Status Date / Time No Known Allergies Allergy Verified 08/28/18 14:45 Home Medications: Home Medication List Medication Instructions Recorded Confirmed Last Taken Type Aspirin 81 mg PO DAILY 09/18/16 08/28/18 08/28/18 History Metformin HCl 500 mg PO BID 09/18/16 08/28/18 08/28/18 History Metoprolol Succinate [Toprol Xl] 50 mg PO DAILY 09/18/16 08/28/18 08/28/18 History ATORVAstatin [Lipitor] 20 mg PO DAILY@1700 tablet 03/08/17 08/28/18 08/27/18 Rx Biotin 1 dose PO DAILY 08/28/18 08/28/18 08/28/18 History Cholecalciferol (Vit D3) [Vitamin 1 dose PO DAILY 08/28/18 08/28/18 08/28/18 History D] Cyanocobalamin (Vitamin B-12) 1 dose PO DAILY 08/28/18 08/28/18 08/28/18 History [Vitamin B12] Donepezil HCl 1 tab PO QHS 08/28/18 08/28/18 08/27/18 History Multivitamin [Multi-Day Vitamins] 1 tab PO DAILY 08/28/18 08/28/18 08/28/18 History Omeprazole 1 tab PO DAILY 08/28/18 08/28/18 08/28/18 History Vitamin E 1 dose PO DAILY 08/28/18 08/28/18 08/28/18 History Clopidogrel Bisulfate [Plavix] 75 mg PO DAILY #90 tab 08/31/18 Unknown Rx Tramadol HCl/Acetaminophen 1 ea PO TID #90 tab 08/31/18 Unknown Rx [Ultracet Tablet] - History of Present Illness-Neuro Nature of Presenting Problem: 79 y/o male with history of previous stroke, on Plavix and 81 mg. aspirin, presents to the ED with complaint of right leg weakness, headache. and right peripheral vision loss since waking this am. The patient states he took Aleve for the headache this am as well as normal daily medications. NKDA. Headache Location: reports: frontal (left) Onset/Duration: reports: 1-3 hours ago (wake up stroke) Timing: reports: still present Character of Altered Mental Status: reports: trouble concentrating Any recent trauma/injury?: reports: none Character of Deficits: reports: new weakness (left leg), vision problem/glaucoma (right eye) New weakness or altered sensation location:: reports: RUE, RLE Cognitive Baseline: alert, oriented x3 Gait Baseline: walks without assistance Associated Symptoms: reports: headache, vision changes (right eye). denies: fever/chills, vomiting Similar Symptoms Previously?: Yes Recently seen or treated by another doctor?: No Review of Systems - Adult - REVIEW OF SYSTEMS - ADULT Constitutional: denies: chills, fever, weight loss Eyes: reports: other (right eye vision loss). denies: discharge, eye pain Ears, Nose, Mouth & Throat: reports: no symptoms reported Cardiovascular: reports: no symptoms reported Respiratory: reports: no symptoms reported Gastrointestinal: denies: diarrhea, nausea, vomiting Genitourinary: reports: no symptoms reported Musculoskeletal: reports: no symptoms reported Integumentary: reports: no symptoms reported Neurological: reports: headache/migraines, slurred speech, other (left leg weakness,) Psychiatric: reports: no symptoms reported Endocrine: reports: no symptoms reported Hematologic/Lymphatic: reports: no symptoms reported Allergic/Immunologic: reports: no symptoms reported All Other Systems: Reviewed and Negative Past History - Adult - PAST MEDICAL HISTORY-ADULT Review of Records: reports: Old Records Reviewed, Nursing Assessment Review, Medications Reviewed Respiratory: reports: sleep apnea Gastrointestinal: reports: other (hiatal hernia) Neurological: reports: CVA, TIA Endocrine/Immune: reports: Diabetes - PRIOR SURGERIES/PROCEDURES Surgical/Procedure History: reports: hernia repair, orthopedic (extremity), back/neck - IMMUNIZATION STATUS Childhood Immunizations: See Nurse Assessment Flu Vaccine: See Nurse Assessment - SOCIAL HISTORY Smoking: other (former smoker) Physical Exam- Neurological - Physical Exam-Neuro Initial Vital Signs Reviewed: Yes General Appearance: alert, no apparent distress Eye Exam: right eye: vision changes (right homonymous hemianopsia), other (difficulty with gaze to the right but able to do with multiple attempts ), bilateral eye: PERRL, abnormal EOM HENMT: normocephalic/atraumatic, moist mucous membranes Head Injury: no evidence of injury. negative: active bleeding, Petersen's Sign, raccoon eyes Neck: full range of motion, supple Respiratory: lungs clear, normal breath sounds. negative: rales, rhonchi, wheezing Cardiovascular: regular rate, rhythm, no edema, no gallop, no JVD, no murmur Abdominal Exam: non tender, soft, no organomegaly, no pulsatile mass Peripheral Pulses: radial (R): 2+, radial (L): 2+ Extremity: normal range of motion, non-tender, normal gait, other (reflexes bilateral upper extremities 1+, right knee 0 with artificial knee, right ankle 1, left knee 0, left ankle 1) scrap burner Exam: normal hearing, normal speech, other (difficulty with left gaze but able to do with multiple attempts). negative: facial droop, facial paresthesias Coordination/Gait: abnormal gait, ABN nose to finger (R) Motor/Sensory: no motor deficit, no sensory deficit, negative Babinski's sign, pronator drift (R). negative: pronator drift (L), sensory deficit, weak motor strength RLE, weak motor strength LLE Neurologic: no motor/sensory deficits, abnormal cerebellar tests, abnormal gait. negative: facial droop, focal weakness Integumentary: normal color, warm/dry. negative: diaphoresis Psych/Mental Status: normal mood/affect, normal thought process, oriented x 3, other (sl expressive aphasia) - Glascow Coma Scale Best Eye Response: (4) open spontaneously Best Verbal Response: (5) oriented Best Motor Response: (6) obeys commands Progress - PLAN OF CARE/RESULTS Progress/Plan/Lab Results: Vital Signs - 8 hr 06/02/19 10:05 Temperature 97.8 F Pulse Rate 57 L Respiratory Rate 16 Blood Pressure 155/80 O2 Sat by Pulse Oximetry 97 Laboratory Results - last 24 hr 06/02/19 06/02/19 06/02/19 10:42 10:42 10:42 WBC RBC Hgb Hct MCV MCH MCHC RDW Std Deviation Plt Count MPV Immature Gran % (Auto) Neut % (Auto) Lymph % (Auto) Crosby % (Auto) Eos % (Auto) Baso % (Auto) Immature Gran # (Auto) Neut # (Auto) Lymph # (Auto) Crosby # (Auto) Eos # (Auto) Baso # (Auto) PT INR PTT (Actin FS) Sodium 139 Potassium 4.9 Chloride 101 Carbon Dioxide 27 Anion Gap 11 BUN 11 Creatinine 1.0 Estimated GFR/1.73 m2 > 60 BUN/Creatinine Ratio 11 Glucose 241 H POC Glucose Calculated Osmolality 285 Calcium 9.5 Total Bilirubin 0.66 AST 41 H ALT 41 Alkaline Phosphatase 95 Troponin T High Sens 18 Xko-F-Rzkkkdbdxze Pept 69 Total Protein 7.3 Albumin 4.3 Globulin 3.0 Albumin/Globulin Ratio 1.4 Urine Source Urine Color Urine Turbidity Urine pH Ur Specific [place] Urine Protein Ur Glucose (Stick) Ur Ketones (Stick) Urine Blood Urine Nitrite Urine Bilirubin Urobilinogen Dipstick Urine Leukocytes Urine WBC (Auto) Urine RBC (Auto) U Epithel Cells (Auto) Urine Bacteria (Auto) 06/02/19 06/02/19 06/02/19 10:42 10:42 11:34 WBC 6.58 RBC 4.90 Hgb 13.7 L Hct 43.4 MCV 88.6 MCH 28.0 MCHC 31.6 L RDW Std Deviation 17.0 H Plt Count 225 MPV 10.6 H Immature Gran % (Auto) 0.3 Neut % (Auto) 66.4 Lymph % (Auto) 20.7 Crosby % (Auto) 9.9 H Eos % (Auto) 2.4 Baso % (Auto) 0.3 Immature Gran # (Auto) 0.02 Neut # (Auto) 4.37 Lymph # (Auto) 1.36 Crosby # (Auto) 0.65 H Eos # (Auto) 0.16 Baso # (Auto) 0.02 PT 13.1 INR 0.98 PTT (Actin FS) 26.2 Sodium Potassium Chloride Carbon Dioxide Anion Gap BUN Creatinine Estimated GFR/1.73 m2 BUN/Creatinine Ratio Glucose POC Glucose 184 H Calculated Osmolality Calcium Total Bilirubin AST ALT Alkaline Phosphatase Troponin T High Sens Emu-F-Ltxzhybnnon Pept Total Protein Albumin Globulin Albumin/Globulin Ratio Urine Source Urine Color Urine Turbidity Urine pH Ur Specific [place] Urine Protein Ur Glucose (Stick) Ur Ketones (Stick) Urine Blood Urine Nitrite Urine Bilirubin Urobilinogen Dipstick Urine Leukocytes Urine WBC (Auto) Urine RBC (Auto) U Epithel Cells (Auto) Urine Bacteria (Auto) 06/02/19 11:42 WBC RBC Hgb Hct MCV MCH MCHC RDW Std Deviation Plt Count MPV Immature Gran % (Auto) Neut % (Auto) Lymph % (Auto) Crosby % (Auto) Eos % (Auto) Baso % (Auto) Immature Gran # (Auto) Neut # (Auto) Lymph # (Auto) Crosby # (Auto) Eos # (Auto) Baso # (Auto) PT INR PTT (Actin FS) Sodium Potassium Chloride Carbon Dioxide Anion Gap BUN Creatinine Estimated GFR/1.73 m2 BUN/Creatinine Ratio Glucose POC Glucose Calculated Osmolality Calcium Total Bilirubin AST ALT Alkaline Phosphatase Troponin T High Sens Isr-Z-Hdnaoprbmmx Pept Total Protein Albumin Globulin Albumin/Globulin Ratio Urine Source CLEAN CATCH Urine Color YELLOW Urine Turbidity CLEAR Urine pH 6.5 Ur Specific [place] 1.020 Urine Protein TRACE A Ur Glucose (Stick) >1000 A Ur Ketones (Stick) NEGATIVE Urine Blood NEGATIVE Urine Nitrite NEGATIVE Urine Bilirubin NEGATIVE Urobilinogen Dipstick NORMAL Urine Leukocytes NEGATIVE Urine WBC (Auto) <10 Urine RBC (Auto) <10 U Epithel Cells (Auto) <10 Urine Bacteria (Auto) NEGATIVE Orders Category Date Time Status Cardiac Monitoring DIRECTED Care 06/02/19 10:08 Active Finger Stick Blood Sugar (ED) DIRECTED Care 06/02/19 10:08 Active Saline Loc NOW Care 06/02/19 10:08 Active CHEST-PORTABLE [RAD] Stat Exams 06/02/19 10:[address] HEAD W/O CONTRAST [CT] Stat Exams 06/02/19 10:08 Completed CBC WITH ELECTRONIC DIFF [HEME] Stat Lab 06/02/19 10:42 Completed COMPREHENSIVE METABOLIC PANEL [CHEM] Stat Lab 06/02/19 10:42 Completed PRO B-NATRIURETIC PEPTIDE Stat Lab 06/02/19 10:42 Completed PROTIME WITH INR [COAG] Stat Lab 06/02/19 10:42 Completed PTT [COAG] Stat Lab 06/02/19 10:42 Completed TROPONIN T HIGH SENSITIVITY Stat Lab 06/02/19 10:42 Completed URINALYSIS W/POSS RFLX CULT [URINALYSIS] Stat Lab 06/02/19 11:42 Completed URINE DRUG SCREEN Stat Lab 06/02/19 11:42 Received 0.9% Sodium Chloride Inj [Ns] 1,000 ml Med 06/02/19 11:01 Active IV 75 mls/hr 0.9% Sodium Chloride Inj [Ns] 1,000 ml Med 06/02/19 10:09 Discontinued IV 999 mls/hr EKG [EKG] Stat Ther 06/02/19 10:08 Draft Result Diagrams: 06/02/19 10:42 06/02/19 10:42 - REASSESSMENT Reassessment #1 Time Reassessed: 12:15 Status: unchanged (Given IVF bolus) - EKG 1 Time of EKG reading by physician:: 10:51 EKG Read and Signed by:: Gordo Deluna EKG Interpretation (*Must complete 3 of following elements*): Abnormal Rate: 62 Rhythm: NSR - XRAY 1 XRAY Study: Chest Impression: Normal (CHEST-PORTABLE - 06/02/2019 INDICATION: stroke like symptoms COMPARISON: 08/28/2018 FINDINGS: The lungs are normally expanded and clear. Heart size and mediastinal contours are normal. No pneumothorax or pleural effusion. Stable calcified granuloma in the lateral right lung base. IMPRESSION: Negative exam. Electronically signed by Nino Downey 06/02/2019 10:29 AM), See EMR Report ( CHEST-PORTABLE - 06/02/2019 INDICATION: stroke like symptoms COMPARISON: 08/28/2018 FINDINGS: The lungs are normally expanded and clear. Heart size and mediastinal contours are normal. No pneumothorax or pleural effusion. Stable calcified granuloma in the lateral right lung base. IMPRESSION: Negative exam. Electronically signed by Nino Downey 06/02/2019 10:29 AM 06/02/19 1029 Interpreting Physician: Nino Downey MD Dictated Date/Time: 06/02/19 1027 cc: Gordo Deluna MD; Baljinder Valle MD) - CT/MRI 1 CT Study: Head Impression: Abnormal (CT HEAD W/O CONTRAST - 06/02/2019 INDICATION: stroke like symptoms COMPARISON: 08/28/2018 FINDINGS: There are chronic infarctions in the left frontal and parietal lobes, new or worsening from prior. Stable diffuse cerebral atrophy. Stable advanced chronic microvascular ischemia. Stable old lacunar in the left thalamus. Stable old stroke in the right cerebellar hemisphere. The skull is intact. The sinuses, mastoids, and middle ears are clear. IMPRESSION: Increasing chronic stroke burden. No acute abnormality. This exam was performed using automated exposure control, adjustment of mA or kV according to patient size, and/or use of iterative reconstruction technique Electronically signed by Nino Downey 06/02/2019 10:27 AM), See EMR Report (Signed CT HEAD W/O CONTRAST - 06/02/2019 INDICATION: stroke like symptoms COMPARISON: 08/28/2018 FINDINGS: There are chronic infarctions in the left frontal and parietal lobes, new or worsening from prior. Stable diffuse cerebral atrophy. Stable advanced chronic microvascular ischemia. Stable old lacunar in the left thalamus. Stable old stroke in the right cerebellar hemisphere. The skull is intact. The sinuses, mastoids, and middle ears are clear. IMPRESSION: Increasing chronic stroke burden. No acute abnormality. This exam was performed using automated exposure control, adjustment of mA or kV according to patient size, and/or use of iterative reconstruction technique Electronically signed by Nino Downey 06/02/2019 10:27 AM 06/02/19 1027 Interpreting Physician: Nino Downey MD Dictated Date/Time: 06/02/19 1026 cc: Gordo Deluna MD; Baljinder Valle MD) - CONSULTS/PCP/HOSPITALIST Notification #1 *Consult/PCP/Hospitalist*: Stroke team paged at [phone] Time Discussed: 11:00 (Dr. Ambrocio) Reason/Comments: Continue dual antiplatelet tx, echo tomorrow, no other intervention or tfer Consult Disposition: other #2 Consult: Dr. 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 Attestation - Physician/ JUANA Attestation Patient care was provided by Advanced Practice Provider:: No The physician spent face to face time with patient:: Yes Advanced Practice Provider documentation review:: Supervising physician onsite and consulted in the evaluation and care of this patient. The physician did have a face to face encounter with the patient. - NIH Stroke Scale NIH Type: Initial Evaluation Level of Consciousness: 0-Alert LOC Questions (ask month and age): 0-Answers Both Correctly LOC Commands (ask to open & close eyes;make a fist, let go): 0-Obeys Both Correctly Best Gaze (horizontal eye movement): 1-Partial Gaze Palsy (gaze is abnormal in one or both eyes) Visual (use finger movement, counting or visual threat): 2-Complete Hemianopia Facial Palsy (show teeth or raise eyebrows & close eyes tght: 0-Symmetrical Movement Motor Function-left arm: 0-Normal Motor Function-right arm: 0-Normal Motor Function-left le-Normal Motor Function-right le-Normal Limb Ataxia(pgxlzj-hwmn-ugreca, or heel to arellano): 1-Present in one limb Sensory(pin prick to face,arms,trunk,legs-compare side/side): 0-No Ataxia Best Language(name item/read sentence.Ex-Down to Earth): 1-Mild to Moderate Aphasia Dysarthria(Pt read words or say words Ex.Mama,Tip-Top,Thanks: 0-Normal Articulation Extinction and Inattention: 0-Normal NIH Total Score: 4 Modified Joby Score Criteria: 2-slight disability Stroke tPA Guidelines - Inclusion Criteria for IV tPA 18 years old or older: Yes Ischemic stroke with measurable deficit: Yes Onset <3 hours ago *OR* 3-4.5 hours ago: No - Exclusion Criteria for IV tPA Evidence of intracranial hemorrhage on CT: No Presentation suggest SAH: No CT reveals defined area of hypodensity: Yes Evidence of AVM, neoplasm, aneurysm: No Seizure at stroke onset: No Active internal bleeding or acute trauma: No Platelet Count Less Than 100,000: No Heparin Within Last 48 HRS (PTT >Lab normal limits): No INR > 1.7 (warfarin use): No Use IIB/IIIA inhibitors within 24 hours: No Serious Head Trauma Within Last 3 Months: No Arterial Puncture Within Last 7 Days: No Lumbar Puncture Within Last 7 Days: No Repeated systolic Blood Pressure >185 or Diastolic >110: No - Additional Exclusion Criteria for IV tPA Currently on Coumadin: No Patient older than 80: No Prior stroke and diabetes: Yes Baseline NIHSS score > 25: No - Relative Contraindications to IV tPA CT reveals extensive area of infarct (>1/3 MCA territory): No Minor or rapidly improving stroke symptoms: No Major Surgery or Serious Trauma In Previous 14 Days: No AMI within 3 months: No Gastrointestinal or Urinary Tract hemorrhage in Past 21 Days: No Post - AMI pericarditis: No Blood Glucose Less Than 50 mg/dl or Greater Than 400 mg/dl: No - Consultation Candidate for:: NOT A CANDIDATE This chart was documented by the indicated scribe, (Jacquie Jordan, Scri be) and accurately reflects the services I performed and decisions made by Regi kemp Kent A., MD, as attested by the provider's signature.
--- NOTE | 2019-06-02 17:45 | HISTORY AND PHYSICAL ---
CHIEF COMPLAINT: Stroke-like symptoms, weakness on the right side, vision loss on the right side, the right half of the peripheral vision and slight right leg weakness. He also has a headache and takes some Aleve. HISTORY OF PRESENT ILLNESS: He is a 79-year-old white gentleman who came to the ER after waking up in the morning with some weakness on the right leg and loss of peripheral vision on the right side. He denies of any weakness in the right arm or right leg. The patient was seen in the ER. I talked to the stroke person on-call and not a candidate for tPA. He did not have any swallowing difficulties. Looks like he has a right homonymous hemianopsia, most likely stroke on the left occipital lobe. The patient has been admitted to the hospital for further workup. As a result, a hospital admission was warranted. PAST MEDICAL HISTORY: Metabolic syndrome, fatty liver, benign chondroma in the right upper humerus, colonic diverticulosis, dementia, type 2 diabetes, hiatal hernia, genital herpes, history of shingles on the right upper C6-C7 distribution, sleep apnea, lacunar strokes with dementia. Stroke in 09/05/2018. PAST SURGICAL HISTORY: Rule out palatopharyngeal plasty, umbilical hernia repair, vasectomy, L- spine surgery, circumcision, blepharoplasty, back surgery, right shoulder surgery, left rotator cuff repair. ALLERGIES: Reported to [facility]. MEDICINES: Aricept 10 mg daily, aspirin 81 mg daily, Lipitor 20 mg daily, metformin 500 p.o. b.i.d., Prilosec 40 daily, Plavix 75 daily, Toprol-XL 50 mg daily, tramadol 50 b.i.d. SOCIAL HISTORY: , 1 child, lives in [place]. No smoking. No alcohol. Retired from [employer]. FAMILY HISTORY: Father of pneumonia at 72. Mom of heart failure at 83. PREVENTIVE MEDICAL CARE: Influenza vaccine February 2018. Pneumococcal vaccine June 2019. Last physical in September 2018. Colonoscopy 2009 by [facility]. REVIEW OF SYSTEMS: HEENT: Slight headache and loss of peripheral vision on the right side. No sore throat. No earache. Neck: No neck pain. No goiter. Cardiopulmonary: No chest pain or shortness of breath, PND, orthopnea. GI: No nausea, vomiting, abdominal pain. : No history of hesitancy, frequency, dysuria. No swelling of legs. No joint pain. Neurologic: Some weakness on the right leg, but no definitive weakness noted. OBJECTIVE: PHYSICAL EXAMINATION: VITAL SIGNS: Is 97 degrees, pulse is 57, blood pressure 150/80, 5 feet 11, 250 pounds. HEENT: Atraumatic, normocephalic. Pupils equal, react to light. TMs are normal. Nose and throat within normal limits. NECK: Supple. No lymphadenopathy. No goiter. CHEST: Bilateral air entry. HEART: Sounds are regular. ABDOMEN: Belly is soft, obese, nontender. Good bowel sounds. No peripheral edema or cyanosis. NEUROLOGICAL: No obvious neurological deficits noted. INVESTIGATIONS: CBC: White cell count 6.5, hematocrit 43, platelet count 225,000. PT/INR is normal. SMA 7 is normal. Glucose 184. Liver function tests were normal. Urinalysis is clear. Urine tox screen was negative. Initial CT head chronic infarction of the left frontal and parietal lobes. Diffuse cerebral atrophy. Chest x-ray negative. The patient is in sinus on the monitor. EKG normal sinus. No ischemic changes noted. ASSESSMENT AND PLAN: A 79-year-old white male with a lacunar strokes, multi-infarct dementia, came in with right homonymous hemianopsia with weakness in the right leg. Admitted for rule out further cerebrovascular accident. Consider MRI of the brain in the morning. MRA, carotid Dopplers. Continue secondary prevention. IV fluids 50 mL/h and we will hold the metformin. We will use the insulin with sliding scale coverage and follow up on the pending labs and physical therapy and neurology consult Dr. Workman in the morning. cc: Ricardo Valle MD
[2019-06-02] MEDS: LIPITOR PO SCH (19:08)
[2019-06-02] MEDS: HUMULIN R SUBQ SCH (21:35)
[2019-06-03] MEDS: HUMULIN R SUBQ SCH ×3 (06:27→16:12)
[2019-06-03 07:33] LABS: HEMOGLOBIN A1C 7.7 % (4.8-6.0)
[2019-06-03 07:45] LABS: CHOLESTEROL 100 mg/dL (0-200); HDL 28 mg/dL (35-55); LDL 44 mg/dL; TRIGLYCERIDES 138 mg/dL (39-160); VLDL 28 mg/dL
[2019-06-03] MEDS: ASPIRIN PO SCH (09:09)
[2019-06-03] MEDS: PLAVIX PO SCH (09:09)
--- NOTE | 2019-06-03 12:26 | Diag Imaging Result Doc PS360 ---
EXAM: MRI BRAIN W/O CONTRAST 06/03/2019 HISTORY: r/o cva TECHNIQUE: Sagittal and axial T1, axial T2, FLAIR, DWI and coronal gradient echo. COMMENT: The current study is compared with the previous examination of 08/29/2018. There is encephalomalacia in the right cerebellar hemisphere which was also present previously. There is extensive abnormal increased T2-weighted signal intensity throughout the white matter both cerebral hemispheres with cortical encephalomalacia present in the frontoparietal and temporoparietal cortex on the left. There is increased T2-weighted signal intensity in the left occipital lobe. This was not present previously. There is associated restricted diffusion. There is no evidence of bleed or mass effect. IMPRESSION: Acute or subacute infarction in the left occipital lobe. Other chronic findings as described above. The findings were discussed with Baljinder Valle MD at 06/03/2019 12:24 PM. Electronically signed by Russ Schaefer 06/03/2019 12:24 PM
--- NOTE | 2019-06-03 12:29 | Diag Imaging Result Doc PS360 ---
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 There is no evidence of aneurysm. No major branch occlusions are present. Less of the distal left posterior cerebral artery is visible than on the previous study of 08/29/2018. Given the findings on the MRI of the brain, this may indicate occlusion of the distal portion of the vessel. Otherwise are has been no significant change in the appearance of the study. IMPRESSION: Possible occlusion of the distal left posterior cerebral artery. Electronically signed by Russ Schaefer 06/03/2019 12:27 PM
[2019-06-03] MEDS: LIPITOR PO SCH (16:38)
--- NOTE | 2019-06-03 17:25 | NEUROLOGY CONSULTATION ---
DATE: 06/03/2019 REASON FOR CONSULT: Stroke. HISTORY OF PRESENT ILLNESS: This is a 79-year-old male with history of stroke and multiple vascular risk factors, who presented with stroke-like symptoms. He reports waking up yesterday with inability to see out of the right visual field. He does not report other definite symptoms. He says everything just seemed a little foggy in terms of what happened and what he experienced, but only relates that his prominent symptom was visual deficit. He denies focal weakness, numbness, headache or new speech disturbance. The symptoms have persisted, not worsened not improved since onset. Head CT on arrival did not show acute definite acute findings. MRI today showed acute or subacute infarct in the left occipital lobe. An MRA showed a possible occlusion of the distal left posterior cerebral artery. The patient has history of prior stroke, most recent being in August of last year when he presented with a language deficit and headache. He was found to have an acute left frontal lobe infarct at that time. He had mostly expressive with evidence of receptive aphasia. He also reports since that time having continued difficulty with speech, although he has seen significant improvement. He had been on aspirin 81 mg daily and Plavix was added to that regimen before discharge. He reports continuing that regimen currently. He also takes a statin. He has had some cognitive impairment for couple of years now from what I am seeing in the chart. He was started on Aricept last year some time and has tolerated that. PAST MEDICAL HISTORY: Type 2 diabetes. Prior strokes, cognitive impairment/dementia. Metabolic syndrome. Fatty liver. Hypertension. History of shingles. Multiple surgeries. FAMILY HISTORY: Father of pneumonia and mother of heart failure. SOCIAL HISTORY: He is and lives in [place]. No tobacco alcohol or illicits. He is retired. ALLERGIES: No known drug allergies listed. History and physical reports allergies to Lopressor and Tylenol. MEDICATIONS: At home include; aspirin 81 mg daily, Lipitor 20 mg daily, Plavix 75 mg daily. Aricept 10 mg daily, amongst others. There is also tramadol 50 mg b.i.d. REVIEW OF SYSTEMS: Balance of 12 conducted and otherwise negative except that detailed in the HPI. PHYSICAL EXAMINATION: Vital Signs: He has been afebrile. Blood pressure 155/80 on admission, current 108/82, pulse 60s, respirations 16, 94% on room air. Mr. Hamilton is supine in bed with head of bed elevated. He is awake and alert. He states his name and says hospital. Knows why he is here. There is some evidence of language disturbance that he reports is chronic baseline for him. He has some word substitutions and some difficulty with getting his sentences straight. He follows simple commands consistently. There is no significant dysarthria. His pupils are equal, round, and reactive to light significant dysarthria pupils are equal, round, reactive to light. Gaze is conjugate. Ocular movements are full. He has a right field face symmetric with equal activation. Facial sensation reported intact. He can hear. tongue is midline. Palate elevates symmetrically. Shoulder shrug is full. Power appears to be preserved in the arms and legs. He reports his right leg is mildly weaker at baseline but I could not detect definite weakness. He performs [id number] well. Rapid alternating movements are symmetric. He reports symmetric sensation to light touch over the limbs. There is a length dependent loss to sensation over the distal lower extremities. Reflexes are absent at the ankles, knees, trace to 1+ at the biceps infectious a trace to 1+ at the biceps bilaterally. Plantar response is silent. No clonus. I did not test his gait. DIAGNOSTICS: MRI of the brain, personally reviewed, showing an acute or subacute infarct in the left occipital lobe. There is also other significant chronic findings, encephalomalacia and microvascular disease noted. 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 Head CT did not show definite acute findings. LABORATORY: Platelet count normal. White count normal. A1c of 7.7. LDL 44, HDL 28. ASSESSMENT AND PLAN: Acute ischemic stroke in the left occipital lobe in a patient with multiple vascular risk factors and significant previous cerebral vascular disease noted on imaging. Agree with typical stroke workup as you are doing. I would recommend closely monitoring blood pressure and avoiding hypotension. He may require IV fluids in this regard. At this point, I would continue aspirin and Plavix, as he has been on this for some time now and denies side effects. You might increase his Lipitor. He needs aggressive blood glucose management. I had a discussion with the patient regarding his inability to drive. I told him that he would not be able to drive safely at this time with his visual field cut. He expressed understanding. PT, OT and ST for swallow evaluation. Thank you for the consult. cc: MD Ricardo Hyde MD MTDChacha
[2019-06-03] MEDS: NS 1,000 ML IV SCH (19:21)
--- NOTE | 2019-06-03 20:37 | PROGRESS NOTE ---
DATE: 06/03/2019 SUBJECTIVE: Patient continues to have right-sided homonymous hemianopsia, and patient is going for MRI/MRA of the brain and no weakness on the right side. OBJECTIVE: Vital signs: Temperature is 98 degrees, pulse 62. Vitals are stable. HEENT: Not able to see on the right side peripheral vision. Neck: Supple. Lungs: Bilateral air entry. Cardiovascular: Heart sounds are regular. Abdomen: Belly is soft, nontender. No obvious deficits. INVESTIGATIONS: A1c 7.7, LDL 44. ASSESSMENT: 1. Right-sided homonymous hemianopsia. 2. Vascular dementia. 3. Hyperlipidemia. 4. Diabetes, well controlled. PLAN: Continue IV fluids, aspirin, Plavix and atorvastatin. Increase the ambulation. Follow up on MRI, MRA and carotid Dopplers. Physical therapy for evaluation. Neurology consult. We will slowly reconcile home medications. LEVEL OF DOCUMENTATION: 25 minutes. cc: Ricardo Valle MD
--- NOTE | 2019-06-03 20:52 | Carotid Study ---
DATE: 06/02/2019 PROCEDURE: Bilateral duplex and color flow imaging of the carotid arteries using the [employer] Vivid E9 ultrasound system with a 9L-D transducer. REFERRING PHYSICIAN: Dr. Valle. STEEL FITTER: Kenia Oro RVT. INDICATION: Syncope. FINDINGS: The velocities in cm/sec were reviewed throughout both carotid systems. There was no elevate elevation of the velocities in either carotid system. There was forward flow in the right vertebral artery and the right ICA/CCA ratio was 0.80, corresponding to a percent stenosis of 0 to 39 percent. There was forward flow in the left vertebral artery and the left ICA/CCA ratio was 0.73, corresponding to a percent stenosis of 0 to 39 percent. INTERPRETATION: Despite the patient's symptoms, there was only mild atherosclerotic disease of the distal common and internal carotid arteries bilaterally, without evidence of any hemodynamically significant lesion in either carotid system. When compared to a previous study performed on 08/28/2018, there has been no progression of disease. cc: MD Ricardo Cedillo MD
[2019-06-04] MEDS: HUMULIN R SUBQ SCH ×5 (03:03→21:13)
[2019-06-04] MEDS: NS 1,000 ML IV SCH ×2 (06:19→18:35)
[2019-06-04] MEDS: PLAVIX PO SCH (08:34)
[2019-06-04] MEDS: ASPIRIN PO SCH (08:34)
--- NOTE | 2019-06-04 10:48 | NEUROLOGY PROGRESS NOTE ---
DATE: 06/04/2019 LOCATION: Room 301. SUBJECTIVE: Mr. Hamilton had noticed loss of right visual field vision. Brain MRI yesterday shows evidence of left occipital infarction, which was not noted on prior scan. There is history of previous left frontal infarction with baseline dysphasia and right hemiparesis. There is also question of baseline cognitive impairment. I saw Mr. Hamilton in August last year, and Dr. Melgar saw him for Neurology here yesterday. He reports his deficits are stable today with nothing new. He has been afebrile. Systolic blood pressures have ranged 100 to 140s over the last 24 hours. Carotid ultrasound was unremarkable, with no evidence of hemodynamically significant stenosis bilaterally. Echocardiogram in 08/2018 was unremarkable. On exam today, Mr. Hyatt is awake, alert, attentive. Speech is minimally dysarthric with more prominent pauses due to word finding problems. He occasionally said a wrong word and self corrected. He has right hemianopia, apparently relatively homonymous on limited testing by confrontational finger counting. Left visual field is intact. There is right hemiparesis grading 4/5 at the deltoid. Tongue is midline. Neck is supple. I do not have any urgent suggestion. I would continue daily aspirin and clopidogrel, continue atorvastatin, continue treating blood sugar aggressively, and continue to follow blood pressures, trying to maintain adequate blood pressure with hydration. For the cognitive impairment would continue donepezil 5 mg daily. Electively, probably after discharge, might consider increasing donepezil dose. Thank you for asking Neurology to see Mr. Hamilton. cc: MD Ricardo Bond III, MD MTDD
[2019-06-04] MEDS: CYMBALTA PO SCH (12:18)
[2019-06-04] MEDS: LIPITOR PO SCH (17:15)
--- NOTE | 2019-06-04 20:11 | PROGRESS NOTE ---
DATE: 06/04/2019 SUBJECTIVE: The patient is ambulating well without assistance, and he has continuous peripheral loss of vision on the right side. No speech impediments. No weakness. Eating well. REVIEW OF SYSTEMS: None reported. OBJECTIVE: Vital signs: Temperature is 98 degrees, pulse 47. Vitals are stable. HEENT Exam: Within normal limits. Neck: Supple. Chest: Clear. Cardiovascular: Heart sounds are regular. Abdomen: Belly is soft, nontender. Neurological: No obvious deficits. INVESTIGATIONS: Carotid Dopplers were negative. A1c 7.7, LDL 44. ASSESSMENT: Right homonymous hemianopsia due to left occipital lobe stroke due to posterior cerebral artery occlusion. PLAN OF CARE: 1. Continue IV fluids. 2. Aspirin, Plavix, and keep LDL less than 70, A1c 7.5. We will start on Aricept and duloxetine and Prilosec, home medications. TELEPHONE CALL: I spoke to his through my office about more than 20 minutes about his diagnosis and plan of care since she is not able to see him. I did advise he was not able to drive. The chance of recovery is about less than 10%. We will continue to monitor. Secondary prevention. Also increasing Aricept down the line for the cognition decline and appreciated Dr. Workman's followup and will discontinue the fluids in the morning. LEVEL OF DOCUMENTATION: 25 minutes. cc: Ricardo Valle MD
[2019-06-04] MEDS: ARICEPT PO SCH (21:13)
[2019-06-05] MEDS: HUMULIN R SUBQ SCH ×3 (06:09→22:18)
[2019-06-05] MEDS: PRILOSEC PO SCH (06:09)
[2019-06-05] MEDS: NS 1,000 ML IV SCH ×2 (08:37→22:17)
[2019-06-05] MEDS: PLAVIX PO SCH (08:38)
[2019-06-05] MEDS: ASPIRIN PO SCH (08:38)
[2019-06-05] MEDS: CYMBALTA PO SCH (08:38)
--- NOTE | 2019-06-05 12:25 | NEUROLOGY PROGRESS NOTE ---
DATE: 06/05/2019 SUBJECTIVE: Mr. Hamilton has no specific complaints today. He believes that he can see better. He reports he has been up and walking without assistance. He believes that his right-sided weakness is at baseline over the last several months. OBJECTIVE: On exam, he is awake, alert, attentive, bright, cheerful. Language function seems a little bit improved, but was not tested thoroughly today. He has definite improvement in the right hemianopia on confrontational testing. There were still some inconsistencies, but he was able to count fingers correctly at times in the superior and inferior quadrants of the right field with both eyes open today. I can overcome the right arm, grading 4/5 at the deltoid, stable compared to yesterday and probably at baseline. IMPRESSION: Recent left occipital infarction, presenting with right hemianopia and clinical evidence of some improvement. Prior left hemisphere infarction with mild right hemiparesis at baseline. PLAN: I do not have any new suggestions today. I would continue aspirin, clopidogrel, atorvastatin, continue maintaining blood pressure, continue donepezil. Thanks for asking Neurology to see Mr. Hamilton. cc: MD Ricardo Bond III, MD MTDD
--- NOTE | 2019-06-05 16:40 | PROGRESS NOTE ---
DATE: 06/05/2019 SUBJECTIVE: The patient is doing better. Still continues to have loss of peripheral vision on the right side. No neurological symptoms. I appreciated Dr. Workman's input. OBJECTIVE: Vital Signs: Stable. HEENT: No change. ASSESSMENT AND PLAN: Right homonymous hemianopsia due to left occipital heart index infarct due to posterior cerebral artery occlusion. Continue secondary prevention. Increasing the Lipitor. Continue IV fluids and will discharge in the morning and continue secondary prevention. Arranged outpatient home health care. Level of documentation is 25 minutes. cc: Ricardo Valle MD
[2019-06-05] MEDS: LIPITOR PO SCH (17:43)
[2019-06-05] MEDS: ARICEPT PO SCH (22:16)
[2019-06-06] MEDS: HUMULIN R SUBQ SCH (06:21)
[2019-06-06] MEDS: PRILOSEC PO SCH (06:25)
[2019-06-06 08:11] VITALS: BP 138/78
[2019-06-06] MEDS: CYMBALTA PO SCH (08:39)
[2019-06-06] MEDS: PLAVIX PO SCH (08:39)
[2019-06-06] MEDS: ASPIRIN PO SCH (08:39)
--- NOTE | 2019-06-07 08:59 | NEUROLOGY PROGRESS NOTE ---
DATE: 06/06/2019 Mr. Hamilton is awake, alert, attentive, and appropriate. Speech is not dysarthric. He was finding his words pretty well on limited casual conversation with me this morning. On careful confrontational finger testing of visual biswas, left field continues intact. On the right, there appears to be a relative inferior quadrantanopia and he has better vision in the right superior field. Right hemiparesis continues at baseline with no definite evidence of more prominent deficit than prior to current admission. I do not have any new suggestion from a neurology standpoint. I agree with DR. Valle's plans. I will be glad to see Mr. Hamilton later as an outpatient, if needed. Thanks for asking us to see him here. cc: MD Ricardo Bond III, MD MTDD
--- NOTE | 2019-06-08 11:46 | DISCHARGE SUMMARY ---
ADMISSION DATE: 06/02/2019 DISCHARGE DATE: 06/06/2019 DISCHARGING DIAGNOSIS: Right homonymous hemianopsia due to left occipital lobe infarct due to left posterior cerebral artery occlusion. SECONDARY DIAGNOSES: 1. Vascular dementia. 2. Metabolic syndrome. 3. Fatty liver. 4. 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 5. Colonic diverticulosis. 6. Type 2 diabetes. 7. Hypertension. 8. Genital herpes. 9. Sleep apnea. 10. History of lacunar strokes in the past. CONSULTATION: Dr. Workman. PROCEDURES: 1. Carotid Dopplers negative for hemodynamics stenosis. 2. MRI of the brain findings: Acute and subacute infarction, left occipital lobe, with chronic findings cortical encephalomalacia, frontoparietal, temporoparietal. 3. MRA of the brain: Possible occlusion of distal left posterior cerebral artery. RADIOLOGY: Chest x-ray negative. BRIEF HISTORY: Please see the H and P that was done on the day of admission. In brief, he is a 79-year-old white male with past medical history of lacunar infarction due to atherosclerotic vascular disease. He came in with a sudden onset of loss of peripheral vision on the right side of the body with some weakness in the right leg. The patient was admitted for stroke. Stroke protocol was initiated. He was not a candidate for tPA. During this hospital course, the patient did not have any swallowing difficulties or any neurological weakness on the right side of the body. He has significant peripheral vision. Further findings reviewed. He was on excellent secondary prevention, which included aspirin, Plavix. LDL less than 70. A1c 7.7. The patient was able to ambulate, eating well. Findings were discussed with his on the telephone. LABORATORY DATA: As follows: CBC with white cell count 6.5, hematocrit 43, platelets 225. Sodium 139, potassium 4.9, chloride 101. BUN 11, creatinine 1.0, glucose 173. A1c 7.7. LFTs were normal. Triglycerides 138, cholesterol 100, LDL 44. X-RAY DATA: Chest x-ray was negative. DISCHARGE INSTRUCTIONS ARE FOLLOWS: 1. Outpatient home health. 2. Toprol-XL 50 mg daily, aspirin 81 mg daily, metformin 500 p.o. b.i.d., Lipitor 20 mg daily, biotin 1 mg daily, vitamin D 3 5000 units daily, vitamin B 12 2500 mcg daily, multivitamin 1 tablet daily, Prilosec 20 daily, benazepril 10 at bedtime, Plavix 75 daily, duloxetine 20 mg daily, Lipitor 40 mg daily. 3. Follow up in my office in 10 days. cc: MD Vin Lr III, MD
== END 2019-06-06 11:17 | disposition home health service (06) | DRG 66 ==
LOC: ED 10:03 → EDIPHOLD 16:37 → 3N 19:10
PROVIDERS: ADMIT Internal Medicine; ATTEND Internal Medicine